=== PATIENT | male | born 1985 | race African-American/Black ===

== ENCOUNTER 2019-10-05 08:41 | Emergency (ER) | payer OTHER ==
--- OUTSIDE RECORDS SUMMARY | 2019-10-05 08:43 | XMS REPORT | Summary of Care ---
:1985 Demographics Address [address] [place] [address] [address] [place] [address] Mobile Phone Home Phone Phone Email Address [email or web address] Preferred Language South Korean Marital Status Single Mandaen Affiliation Unknown Race Black or Ethnic Group Not or Author Organization [facility] Address [address] [place] [phone] Care Team Providers Name Role Phone Pcp, Patient Does Not Have A Primary Care Provider Reason for Referral Radiology Services (STAT) Status Reason Specialty Diagnoses / Referred By Referred To Procedures Contact Contact New Request Diagnostic Diagnoses Testicular pain Pio Bhandari Radiology Procedures US SCROTUM AND CONTENTS MD Michael [address] [place] [phone] Radiology Services (STAT) Status Reason Specialty Diagnoses / Referred By Referred To Procedures Contact Contact New Request Diagnostic Diagnoses Testicular pain Pio Bhandari Radiology Procedures US SCROTUM AND CONTENTS MD Michael [address] [place] [phone] Reason for Visit Reason Comments Testicle Problem Auth/Cert Status Reason Specialty Diagnoses / Referred By Referred To Procedures Contact Contact Emergency Medicine [facility]-Emergency Dept [address] [place] [phone] Encounter Details Date Type Department Care Team Description 02/09/2019 Emergency [facility]Emer[facility] Department Pio Bhandari, Testicular pain [address] [place] [address] (Primary Dx) [place] [id number] [place], [place] [phone] [address] [phone] Allergies No Known Allergiesdocumented as of this encounter (statuses as of 02/09/2019) Medications Medication Sig Dispensed Refills Start Date End Date Status ondansetron 4 mg Take 1 tablet by 10 tablet 0 12/22/2018 Active tabletIndications: mouth every 8 Intractable vomiting (eight) hours as with nausea, needed for Nausea unspecified vomiting and Vomiting (N/V). type dicyclomine 20 mg Take 1 tablet by 20 tablet 0 12/22/2018 Active tabletIndications: mouth 4 (four) Diarrhea, unspecified times daily as type needed for Abdominal pain. documented as of this encounter (statuses as of 02/09/2019) Active Problems Problem Noted Date Polysubstance overdose 02/08/2017 documented as of this encounter (statuses as of 02/09/2019) Social History Tobacco Use Types Packs/Day Years Used Date Current Every Day Smoker 0.5 6 Smokeless Tobacco: Never Used Alcohol Use Drinks/Week oz/Week Comments Yes 10 Cans of beer 6.0 Alcohol Habits Answer Date Recorded How often do you have a drink containing 4 or more times a week 12/22/2018 alcohol? How many drinks containing alcohol do you have 1 or 2 12/22/2018 on a typical day when you are drinking? How often do you have six or more drinks on one Not asked occasion? Sex Assigned at Date Recorded Not on file Job Start Date Occupation Industry Not on file Not on file Not on file Travel History Travel Start Travel End No recent travel history available. documented as of this encounter Last Filed Vital Signs Vital Sign Reading Time Taken Comments Blood Pressure 132/79 02/09/2019 11:50 AM CDT Pulse 69 02/09/2019 11:50 AM CDT Temperature 36.7 C (98 F) 02/09/2019 11:50 AM CDT Respiratory Rate 18 02/09/2019 11:50 AM CDT Oxygen Saturation 100% 02/09/2019 11:50 AM CDT Inhaled Oxygen Concentration - - Weight 90.7 kg (200 lb) 02/09/2019 9:32 AM CDT Height - - Body Mass Index 27.12 02/08/2017 10:00 PM CDT documented in this encounter Discharge Instructions InstructionsHuPio patricio MD - 02/09/2019Diagnosis: Testicular pain, varicocele, epididymal cyst Rx: Ibuprofen 600 mg every 6 hours as needed for pain. Follow up with urology in clinic next week if not much better. Return to ER for increasing pain, increasing swelling, fever, pain with urination, or any problems or concerns. AttachmentsThe following attachments cannot be sent through Care Everywhere.Varicocele (South Korean)Testicular Pain, Unclear Cause (South Korean) documented in this encounter Plan of Treatment Name Type Priority Associated Diagnoses Date/Time GC & CHLAMYDIA AMPLIFIED LAB STAT Testicular pain 02/09/2019 9:58 AM CDT ASSAY Name Type Priority Associated Diagnoses Order Schedule GC & CHLAMYDIA AMPLIFIED LAB Routine Testicular pain ONCE for 1 Occurrences ASSAY starting 02/09/2019 until 02/09/2019 Health Maintenance Due Date Last Done Comments PNEUMOCOCCAL 0-64 YEARS COMBINED SERIES (1 of 1 - 1990 PPSV23) VARICELLA VACCINES (1 of 2 - 13+ 2-dose series) 1997 DTaP,Tdap,and Td Vaccines (1 - Tdap) 09/28/2003 INFLUENZA VACCINE 03/05/2019 documented as of this encounter Procedures Procedure Name Priority Date/Time Associated Comments Diagnosis US SCROTUM AND STAT 02/09/2019 11:20 AM Testicular pain Results for this CONTENTS CDT procedure are in the results section. URINALYSIS STAT 02/09/2019 9:58 AM Testicular pain Results for this CDT procedure are in the results section. documented in this encounter Results US SCROTUM AND CONTENTS (02/09/2019 11:20 AM CDT) Specimen Impressions Performed At [facility] 1.A 1.7 cm right simple epididymal head cyst. 2.No evidence of testicular torsion or epididymoorchitis. 3.Left varicocele. ITres MD., have reviewed this study and agree with the above report. Narrative Performed At EXAM HISTORY: right testicular pain and swelling. [facility] SCROTAL ULTRASOUND FINDINGS: RIGHT TESTICLE: Normal size, shape, and echotexture without a focal lesion. The right testicle measures 4.6 x 2 x 3.4 cm (16.3 mL). LEFT TESTICLE: Normal size, shape, and echotexture without a focal lesion. The left testicle measures 4.6 x 2.3 x 3.4 cm (18.5 mL). EPIDIDYMIDES: The left abdominal head measures 0.9 x 0.8 x 1 cm. The right epididymal head measures 1.4 x 2 x 0.7 cm. Within the right epididymal head lies a 1.5 x 1.2 x 1.7 cm round, anechoic structure that demonstrates posterior acoustic enhancement consistent with simple epididymal head cyst. BLOOD FLOW: Symmetric arterial waveforms. SCROTUM: No hydrocele. VARICOCELE: A Left varicocele is present. Procedure Note [facility], Radiant Results Inft User - 02/09/2019 11:49 AM CDT EXAM HISTORY: right testicular pain and swelling . SCROTAL ULTRASOUND FINDINGS: RIGHT TESTICLE: Normal size, shape, and echotexture without a focal lesion. The right testicle measures 4.6 x 2 x 3.4 cm (16.3 mL). LEFT TESTICLE: Normal size, shape, and echotexture without a focal lesion. The left testicle measures 4.6 x 2.3 x 3.4 cm (18.5 mL). EPIDIDYMIDES: The left abdominal head measures 0.9 x 0.8 x 1 cm. The right epididymal head measures 1.4 x 2 x 0.7 cm. Within the right epididymal head lies a 1.5 x 1.2 x 1.7 cm round, anechoic structure that demonstrates posterior acoustic enhancement consistent with simple epididymal head cyst. BLOOD FLOW: Symmetric arterial waveforms. SCROTUM: No hydrocele. VARICOCELE: A Left varicocele is present. IMPRESSION 1. A 1.7 cm right simple epididymal head cyst. 2. No evidence of testicular torsion or epididymoorchitis. 3. Left varicocele. IObey MD., have reviewed this study and agree with the above report. Performing Organization Address City/State/Zipcode Phone Number PACS/VR/DOSE URINALYSIS (02/09/2019 9:58 AM CDT) APPEARANCE Clear Clear [facility] COLOR Yellow Yellow [facility] PH 6.0 4.8 - 8.0 [facility] SP GRAVITY 1.021 1.003 - 1.030 [facility] GLU U QUAL 150 mg/dL (A) Normal [facility] BLOOD Negative Negative [facility] KETONES Negative Negative [facility] PROTEIN Negative Negative [facility] UROBILIN Normal Normal [facility] BILIRUBIN Negative Negative [facility] NITRITE Negative Negative [facility] LEUK MEGHAN Negative Negative [facility] RBC/HPF 2 0 - 3 HPF [facility] WBC/HPF 3 0 - 5 HPF [facility] BACTERIA Negative Negative [facility] MUCOUS Moderate (A) Negative LPF [facility] SQ EPITH 1 <=2 HPF [facility] Specimen Urine - URINE, CLEAN CATCH Performing Organization Address City/State/Zipcode Phone Number [facility] CLIA: [id number], [address] [place] [address] [phone] [facility] documented in this encounter Visit Diagnoses Diagnosis Testicular pain - Primary Unspecified disorder of male genital organs documented in this encounter Administered Medications Medication Order MAR Action Action Date Dose Rate Site ibuprofen (IBU) tablet 600 mg Given 02/09/2019 11:48 AM CDT 600 mg 600 mg, Oral, ONCE, 1 dose, Shaina 02/09/19 at 1130, MELISSA documented in this encounter
--- OUTSIDE RECORDS SUMMARY | 2019-10-05 08:44 | XMS REPORT ---
:1985 [facility] Address [address] [place] [address] [address] [place] [address] Care Team Providers Name Role Phone Unavailable Unavailable Unavailable Problems This patient has no known problems. Allergies, Adverse Reactions, Alerts This patient has no known allergies or adverse reactions. Medications This patient has no known medications.
[2019-10-05] MEDS ORDERED: FAMOTIDINE 20 MG/2 ML VIAL IV ONE (09:15)
[2019-10-05] MEDS ORDERED: ONDANSETRON 4 MG/2 ML VIAL ONE (09:15)
[2019-10-05 09:22] LABS: Absolute Lymphocytes (CBC) 2.5 K/uL (0.7-4.9); Basophils % 0.9 % (0-1.3); Hematocrit 47.1 % (39.6-49.0); Lymphocytes % 44.7 % (15.3-44.8); MPV 8.3 fL (7.6-11.3); RBC Red Blood Cell Count 5.64 M/uL (4.33-5.43)
[2019-10-05 09:35] LABS: ALT/SGPT 36 U/L (12-78); AST/SGOT 24 U/L (15-37); Albumin 3.9 g/dL (3.4-5.0); Alkaline Phosphatase 77 U/L (45-117); BUN Blood Urea Nitrogen 7 mg/dL (7-18); Bicarbonate 29 mmol/L (21-32); Bilirubin Direct 0.1 mg/dL (0-0.2); Bilirubin Total 0.8 mg/dL (0.2-1.0); Glucose Level 88 mg/dL (74-106); Lipase 88 U/L (73-393); Potassium 3.9 mmol/L (3.5-5.1); Protein, Total 7.9 g/dL (6.4-8.2); Sodium Level 141 mmol/L (136-145)
--- NOTE | 2019-10-05 11:10 | RAD REPORT ---
EXAM DESCRIPTION: US - Abdomen Exam Limited - 10/05/2019 9:52 am CLINICAL HISTORY: ABD PAIN COMPARISON: No comparisons FINDINGS: No gallstones are identified. Internal echogenicity is believed to be artifact rather than sludge. There is no wall thickening or pericholecystic fluid. No common duct stone or biliary tree dilatation identified. IMPRESSION: Normal gallbladder and biliary tree ultrasound.
--- NOTE | 2019-10-05 11:26 | EDPHYS ---
Physician Documentation [facility] Name: Phillip Gusman Age: 34 yrs Sex: Male : 1985 Arrival Date: 10/05/2019 Time: 08:47 Bed 5 Private MD: ED Physician Kiera Bowling HPI: 10/04 09:00 This 34 yrs old Black Male presents to ER via Ambulatory with complaints of jr8 Nausea/Vomiting. 09:00 The patient presents with abdominal pain in the right upper quadrant. Onset: The jr8 symptoms/episode began/occurred yesterday. The patient presents to the emergency department with nausea, that is mild, vomiting, that is intermittent. Onset: The symptoms/episode began/occurred yesterday. Historical: - Allergies: 08:56 No Known Allergies; ss - Home Meds: 08:56 None [Active]; ss - PMHx: 08:56 None; ss - PSHx: 08:56 None; ss - Immunization history:: Adult Immunizations up to date. - Social history:: Smoking status: Patient denies any tobacco usage or history of. ROS: 09:05 Constitutional: Negative for body aches, chills, fever, poor PO intake. jr8 09:05 Eyes: Negative for injury, pain, redness, and discharge. jr8 Exam: 09:10 Constitutional: The patient appears in no acute distress, alert, awake, jr8 non-diaphoretic, non-toxic, well developed, well nourished. 09:10 Head/Face: Normocephalic, atraumatic. Eyes: Pupils equal round and reactive to light, jr8 extra-ocular motions intact. Lids and lashes normal. Conjunctiva and sclera are non-icteric and not injected. Cornea within normal limits. Periorbital areas with no swelling, redness, or edema. ENT: Nares patent. No nasal discharge, no septal abnormalities noted. Tympanic membranes are normal and external auditory canals are clear. Oropharynx with no redness, swelling, or masses, exudates, or evidence of obstruction, uvula midline. Mucous membranes moist. Chest/axilla: Normal chest wall appearance and motion. Nontender with no deformity. No lesions are appreciated. Cardiovascular: Regular rate and rhythm with a normal S1 and S2. No gallops, murmurs, or rubs. Normal PMI, no JVD. No pulse deficits. Respiratory: Lungs have equal breath sounds bilaterally, clear to auscultation and percussion. No rales, rhonchi or wheezes noted. No increased work of breathing, no retractions or nasal flaring. 09:10 Abdomen/GI: Inspection: abdomen appears normal, Bowel sounds: active, all quadrants, Palpation: soft, in all quadrants, mild abdominal tenderness, in the right upper quadrant, rebound tenderness, is not appreciated, voluntary guarding, is not appreciated, involuntary guarding, is not appreciated. 09:10 Back: pain, is absent, ROM is normal. Vital Signs: 08:54 BP 124 / 89; Pulse 85; Resp 16; Temp 97.5; Pulse Ox 100% ; Weight 108.86 kg; Height 5 ss ft. 11 in. (180.34 cm); Pain 0/10; 09:47 BP 127 / 85; Pulse 63; Resp 16; Temp 97.8(TE); Pulse Ox 99% on R/A; mh5 10:29 BP 117 / 89; Pulse 68; Resp 15; Pulse Ox 99% on R/A; hb 11:35 BP 127 / 90; Pulse 80; Resp 16 S; Pulse Ox 100% on R/A; aa5 08:54 Body Mass Index 33.47 (108.86 kg, 180.34 cm) ss MDM: 08:48 Patient medically screened. cp 11:24 Data reviewed: vital signs, nurses notes, lab test result(s), radiologic studies, jr8 ultrasound. Data interpreted: Pulse oximetry: on room air is 99 %. Interpretation: normal. Counseling: I had a detailed discussion with the patient and/or guardian regarding: the historical points, exam findings, and any diagnostic results supporting the discharge/admit diagnosis, lab results, radiology results, the need for outpatient follow up, a family practitioner, a silk screener, to return to the emergency department if symptoms worsen or persist or if there are any questions or concerns that arise at home. Response to treatment: the patient's symptoms have markedly improved after treatment. 10/04 08:55 Order name: Basic Metabolic Panel; Complete Time: 09:48 cp 10/04 08:55 Order name: CBC with Diff; Complete Time: 09:28 cp 10/04 09:28 Interpretation: Normal except: RBC 5.64. cp 10/04 08:55 Order name: Creatinine for Radiology; Complete Time: 09:48 cp 10/04 08:55 Order name: Hepatic Function; Complete Time: 09:48 cp 10/04 09:48 Interpretation: Normal except: GLOB 4.0; A/G 1.0. cp 10/04 08:55 Order name: Lipase; Complete Time: 09:48 cp 10/04 08:55 Order name: US Abdomen Limited: RUQ; Complete Time: 11:22 cp 10/04 08:55 Order name: IV Saline Lock; Complete Time: 09:24 cp 10/04 08:55 Order name: Labs collected and sent; Complete Time: 09:15 cp 10/04 08:55 Order name: NPO; Complete Time: 09:24 cp Administered Medications: 09:23 Drug: Pepcid 20 mg Route: IVP; Site: left antecubital; 09:24 Drug: Zofran (Ondansetron) 4 mg Route: IVP; Site: left antecubital; Disposition: 16:23 Co-signature as Attending Physician, Kiera Bowling MD. ma2 Disposition: 10/05/19 11:25 Discharged to Home. Impression: Nausea and vomiting. - Condition is Stable. - Discharge Instructions: Nausea and Vomiting, Adult. - Prescriptions for Zofran 4 mg Oral Tablet - take 1 tablet by ORAL route every 12 hours As needed; 20 tablet. - Work release form, Medication Reconciliation Form, Thank You Letter, Antibiotic Education, Prescription Opioid Use form. - Follow up: Private Physician; When: 5 - 6 days; Reason: Recheck today's complaints, Continuance of care, Re-evaluation by your physician. - Problem is new. - Symptoms have improved. Signatures: Dispatcher [employer] EDLacey Olson RN RN aa5 Marixa Chambers RN RN ss Roszak, Josh, PA PA jr8 Daniele Khalil PA PA cp Baxter, Heather, RN RN Kiera Bowling MD MD ma2 Corrections: (The following items were deleted from the chart) 11:41 11:25 10/05/2019 11:25 Discharged to Home. Impression: Nausea and vomiting. Condition aa5 is Stable. Forms are Medication Reconciliation Form, Thank You Letter, Antibiotic Education, Prescription Opioid Use. Follow up: Private Physician; When: 5 - 6 days; Reason: Recheck today's complaints, Continuance of care, Re-evaluation by your physician. Problem is new. Symptoms have improved. jr8
--- NOTE | 2019-10-05 11:26 | ER ---
Nurse's Notes [facility] Name: Phillip Gusman Age: 34 yrs Sex: Male : 1985 Arrival Date: 10/05/2019 Time: 08:47 Bed 5 Private MD: Diagnosis: Nausea and vomiting Presentation: 10/04 08:55 Chief complaint: Patient states: N/V that began yesterday. Coronavirus screen: Patient ss denies fever greater than 100.4F, cough, shortness of breath, or difficulty breathing. Proceed with normal triage process. Ebola Screen: Patient denies exposure to infectious person. Patient denies travel to an Ebola-affected area in the 21 days before illness onset. Initial Sepsis Screen: Does the patient meet any 2 criteria? No. Patient's initial sepsis screen is negative. Does the patient have a suspected source of infection? No. Patient's initial sepsis screen is negative. Risk Assessment: Do you want to hurt yourself or someone else? Patient reports no desire to harm self or others. 08:55 Method Of Arrival: Ambulatory ss 08:55 Acuity: EDILMA 3 ss Historical: - Allergies: 08:56 No Known Allergies; ss - Home Meds: 08:56 None [Active]; ss - PMHx: 08:56 None; ss - PSHx: 08:56 None; ss - Immunization history:: Adult Immunizations up to date. - Social history:: Smoking status: Patient denies any tobacco usage or history of. Screenin:28 Abuse screen: Denies threats or abuse. Denies injuries from another. Nutritional hb screening: No deficits noted. Tuberculosis screening: No symptoms or risk factors identified. Fall Risk None identified. Assessment: 09:15 General: Appears in no apparent distress. Behavior is calm, cooperative. Pain: Denies hb pain. Neuro: Level of Consciousness is awake, alert, obeys commands, Oriented to person, place, time, situation. Cardiovascular: Capillary refill < 3 seconds Patient's skin is warm and dry. Respiratory: Airway is patent Respiratory effort is even, unlabored, Respiratory pattern is regular, symmetrical. GI: Abdomen is non-distended, Reports nausea, vomiting. : No signs and/or symptoms were reported regarding the genitourinary system. EENT: No signs and/or symptoms were reported regarding the EENT system. Derm: Skin is pink, warm \T\ dry. Musculoskeletal: No signs and/or symptoms reported regarding the musculoskeletal system. 10:02 Reassessment: Patient appears in no apparent distress at this time. Patient and/or hb family updated on plan of care and expected duration. Pain level reassessed. Patient is alert, oriented x 3, equal unlabored respirations, skin warm/dry/pink. 11:40 Neuro: Level of Consciousness is awake, alert, obeys commands, Oriented to person, aa5 place, time, situation. Respiratory: Airway is patent Respiratory effort is even, unlabored, Respiratory pattern is regular, symmetrical. Derm: Skin is pink, warm \T\ dry. Vital Signs: 08:54 BP 124 / 89; Pulse 85; Resp 16; Temp 97.5; Pulse Ox 100% ; Weight 108.86 kg; Height 5 ss ft. 11 in. (180.34 cm); Pain 0/10; 09:47 BP 127 / 85; Pulse 63; Resp 16; Temp 97.8(TE); Pulse Ox 99% on R/A; mh5 10:29 BP 117 / 89; Pulse 68; Resp 15; Pulse Ox 99% on R/A; hb 11:35 BP 127 / 90; Pulse 80; Resp 16 S; Pulse Ox 100% on R/A; aa5 08:54 Body Mass Index 33.47 (108.86 kg, 180.34 cm) ED Course: 08:47 Patient arrived in ED. mr 08:47 Daniele Khalil PA is PHCP. cp 08:48 Kiera Bowling MD is Attending Physician. cp 08:54 Arm band placed on right wrist. ss 08:55 Triage completed. ss 09:15 Basic Metabolic Panel Sent. 5 09:15 CBC with Diff Sent. 5 09:15 Creatinine for Radiology Sent. 5 09:15 Hepatic Function Sent. 5 09:15 Lipase Sent. 5 09:16 Initial lab(s) drawn, by me, sent to lab. 5 09:17 Patient has correct armband on for positive identification. Bed in low position. Call [facility] light in reach. Side rails up X 1. Pulse ox on. NIBP on. 09:22 Inserted saline lock: 20 gauge in left antecubital area, using aseptic technique. Blood hb collected. 09:23 Bravo, Homa, RN is Primary Nurse. hb 09:47 US Abdomen Limited: RUQ In Process Unspecified. EDMS 11:10 PHCP role handed off by Daniele Khalil PA jr8 11:10 Hany Mireles PA is PHCP. jr8 11:40 IV discontinued, intact, bleeding controlled, No redness/swelling at site. Pressure aa5 dressing applied. 11:40 No provider procedures requiring assistance completed. aa5 Administered Medications: 09:23 Drug: Pepcid 20 mg Route: IVP; Site: left antecubital; hb 09:24 Drug: Zofran (Ondansetron) 4 mg Route: IVP; Site: left antecubital; hb Outcome: 11:25 Discharge ordered by MD. jr8 11:40 Discharged to home ambulatory. aa5 11:40 Condition: stable 11:40 Discharge instructions given to patient, Instructed on discharge instructions, follow up and referral plans. medication usage, Demonstrated understanding of instructions, follow-up care, medications, Prescriptions given X 1. 11:41 Patient left the ED. aa5 Signatures: Dispatcher [employer] [facility] Radha LomaxLacey, RN RN aa5 Marixa Chambers RN RN Hany Mireles PA PA jr8 Page, Corey, PA PA cp Baxter, Heather, Bhumi Rodriguez RN [facility]
[2019-10-05 11:50] VITALS: TEMP 97.8; O2SAT 99
[2019-10-05 11:51] VITALS: BP 117/89
== END 2019-10-05 11:41 | disposition home or self-care (01) ==
LOC: ER 08:41
DX: R11.2 Nausea with vomiting, unspecified (principal); R10.11 Right upper quadrant pain
CPT/HCPCS: 85025; 80048; 36415; 80076; 83690; 76705; 96375; 96374; 99284; J2405

== ENCOUNTER 2020-08-01 13:30 | Emergency (ER) | payer OTHER ==
--- OUTSIDE RECORDS SUMMARY | 2020-08-01 13:33 | XMS REPORT | Continuity of Care Document ---
:1985 Author Organization [facility] t Address [address] [place] [address] Care Team Providers Name Role Phone Thony WEIR W Attending Clinician Problems This patient has no known problems. Allergies, Adverse Reactions, Alerts This patient has no known allergies or adverse reactions. Medications This patient has no known medications. Procedures This patient has no known procedures. Encounters Start End Encounter Admission Attending Care Care Encounter Source Date/Time Date/Time Type Type Clinicians Facility Department ID 2019-02-09 2019-02-09 Emergency Thony, TRAUMA [id number] 09:32:56 12:26:00 Pio SIMS [id number] Results This patient has no known results.
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
[2020-08-01 13:59] LABS: Absolute Lymphocytes (CBC) 3.2 K/uL (0.7-4.9); Basophils % 0.8 % (0-1.3); Hematocrit 44.2 % (39.6-49.0); Lymphocytes % 48.1 % (15.3-44.8)
--- NOTE | 2020-08-01 14:10 | RAD REPORT ---
EXAM DESCRIPTION: CT - Stone Protocol - 08/01/2020 1:55 pm CLINICAL HISTORY: Flank pain. right flank pain COMPARISON: No comparisons TECHNIQUE: Axial images were obtained without oral or IV contrast. Lack of contrast limits solid org an and vascular assessment. The [id number] spans the entirety of the system partially obscuring uppermost abdomen and lung bases. Coronal reformatted images were obtained and reviewed. All CT scans are performed using dose optimization technique as appropriate and may include automated exposure control or mA/KV adjustment according to patient size. FINDINGS: The lower lung holloway are clear. Imaged portions of the liver and spleen show no suspicious findings on non-contrast imaging. The panc reas and adrenal glands are normal. No pathologic lymphadenopathy in the abdomen or pelvis. 2 mm stone is present at the right UVJ resulting in mild right hydronephrosis. No bowel obstruction, free air, free fluid or abscess. Normal appendix noted.Small fat containing keena ateral inguinal hernias and umbilical hernia. No significant bony abnormality. IMPRESSION: 2 mm stone at the right UVJ resulting in mild right hydronephrosis.
[2020-08-01] MEDS ORDERED: KETOROLAC 30 MG/ML INJ ONE (14:11)
[2020-08-01] MEDS ORDERED: NA CHLORIDE 0.9% 1,000 ML ONE (14:11)
[2020-08-01 14:20] LABS: Albumin 3.4 g/dL (3.4-5.0); Bilirubin Direct 0.1 mg/dL (0-0.2); Bilirubin Total 0.5 mg/dL (0.2-1.0); Potassium 3.6 mmol/L (3.5-5.1); Protein, Total 7.3 g/dL (6.4-8.2)
[2020-08-01] MEDS ORDERED: TAMSULOSIN 0.4 MG SR CAP ONE (14:26)
--- NOTE | 2020-08-01 15:29 | ER ---
Nurse's Notes [facility] Name: Phillip Gusman Age: 34 yrs Sex: Male : 1985 Arrival Date: 08/01/2020 Time: 13:33 Bed 13 Private MD: Diagnosis: Calculus of ureter Presentation: 08/01 13:33 Chief complaint: Patient states: R flank pain that began today. Pt reports a hx of ss kidney stones and reports this feels similar. Coronavirus screen: Client denies travel out of the [place] in the last 14 days. Ebola Screen: Patient denies exposure to infectious person. Patient denies travel to an Ebola-affected area in the 21 days before illness onset. Initial Sepsis Screen: Does the patient meet any 2 criteria? No. Patient's initial sepsis screen is negative. Does the patient have a suspected source of infection? No. Patient's initial sepsis screen is negative. Risk Assessment: Do you want to hurt yourself or someone else? Patient reports no desire to harm self or others. Onset of symptoms was August 01, 2020. Care prior to arrival: Medication(s) given: Normal saline infusion, 500 mL, 75 mcg Fentanyl IV initiated. 18 GA, in the right antecubital area, Glucose check: 150. 13:33 Method Of Arrival: EMS: [facility] ss 13:33 Acuity: EDILMA 3 ss Historical: - Allergies: 13:36 No Known Allergies; ss - Home Meds: 13:36 None [Active]; ss - PMHx: 13:36 Kidney stones; ss - PSHx: 13:36 None; ss - Immunization history:: Adult Immunizations unknown. - Social history:: Smoking status: . Screenin:36 Abuse screen: Denies threats or abuse. Denies injuries from another. Nutritional ss screening: No deficits noted. Tuberculosis screening: Never had TB. Fall Risk None identified. Assessment: 13:36 General: Appears uncomfortable, Behavior is calm, cooperative, quiet. Pain: Complains ss of pain in R flank Pain currently is 6.5 out of 10 on a pain scale. at worst was 10 out of 10 on a pain scale. Quality of pain is described as sharp, Pain began today Is continuous, Alleviated by medications, Noted to be grimacing. Neuro: Level of Consciousness is awake, alert, obeys commands, Oriented to person, place, time, situation. Cardiovascular: Capillary refill < 3 seconds is brisk in bilateral fingers. Respiratory: Airway is patent Respiratory effort is even, unlabored, Respiratory pattern is regular, symmetrical. GI: Patient currently denies diarrhea, nausea, vomiting. : No signs and/or symptoms were reported regarding the genitourinary system. Denies inability to void. EENT: Oral mucosa is moist. Derm: Skin is intact, is healthy with good turgor, Skin is dry, Skin is pink, warm \T\ dry. normal. Musculoskeletal: Circulation, motion, and sensation intact. Range of motion: intact in all extremities, Swelling absent. Vital Signs: 13:33 BP 115 / 81; Pulse 87; Resp 16; Temp 97.4(TE); Pulse Ox 95% on R/A; Weight 102.06 kg; ss Height 6 ft. 0 in. (182.88 cm); Pain 6/10; 13:33 Body Mass Index 30.52 (102.06 kg, 182.88 cm) ED Course: 13:33 Patient arrived in ED. ss 13:34 Maurizio Barfield PA is PHCP. jmm 13:34 Tobias Yeager MD is Attending Physician. jmm 13:35 Triage completed. ss 13:36 Ondina Meadows RN is Primary Nurse. iw 13:36 Arm band placed on right wrist. ss 13:36 Patient has correct armband on for positive identification. Bed in low position. Call ss light in reach. Pulse ox on. NIBP on. 13:36 Maintain EMS IV. Dressing intact. Good blood return noted. Site clean \T\ dry. Gauge \T\ ss site: 18 gauge in L AC. 13:55 CT Stone Protocol In Process Unspecified. EDMS 15:28 Shahab Cruz MD is Referral Physician. jmm 15:34 No provider procedures requiring assistance completed. IV discontinued, intact, ss bleeding controlled, No redness/swelling at site. Pressure dressing applied. Administered Medications: 13:44 Drug: NS 0.9% 1000 ml Route: IV; Rate: 1 bolus; Site: right antecubital; ss 15:34 Follow up: IV Status: Completed infusion; IV Intake: 1000ml ss 13:55 Drug: Ketorolac 30 mg Route: IVP; Site: left antecubital; ss 15:34 Follow up: Response: No adverse reaction; Pain is decreased ss 14:25 Drug: Flomax 0.4 mg Route: PO; iw 15:34 Follow up: Response: No adverse reaction ss Intake: 15:34 IV: 1000ml; Total: 1000ml. ss Outcome: 15:28 Discharge ordered by . mainor 15:34 Discharged to home ambulatory. ss 15:34 Condition: improved 15:34 Discharge instructions given to patient, Instructed on discharge instructions, follow up and referral plans. medication usage, Demonstrated understanding of instructions, follow-up care, medications. 15:36 Patient left the ED. ss Signatures: Dispatcher [employer] EDMS Maurizio Barfield PA PA jmm Williams, Irene, RN RN iw Marixa Chambers RN RN ss
--- NOTE | 2020-08-01 15:29 | EDPHYS ---
Physician Documentation [facility] Name: Phillip Gusman Age: 34 yrs Sex: Male : 1985 Arrival Date: 08/01/2020 Time: 13:33 Bed 13 Private MD: ED Physician Tobias Yeager HPI: 08/01 13:44 This 34 yrs old Black Male presents to ER via EMS with complaints of Flank Pain. jmm 13:44 The patient complains of pain in the right flank. Onset: The symptoms/episode jmm began/occurred gradually, this morning. Modifying factors: The symptoms are alleviated by nothing. the symptoms are aggravated by nothing. Associated signs and symptoms: Pertinent negatives: fever, vomiting. The patient has experienced similar episodes in the past. Historical: - Allergies: 13:36 No Known Allergies; ss - Home Meds: 13:36 None [Active]; ss - PMHx: 13:36 Kidney stones; ss - PSHx: 13:36 None; ss - Immunization history:: Adult Immunizations unknown. - Social history:: Smoking status: . ROS: 13:44 Constitutional: Negative for fever, chills, and weight loss, Cardiovascular: Negative jmm for chest pain, palpitations, and edema, Respiratory: Negative for shortness of breath, cough, wheezing, and pleuritic chest pain. 13:44 Abdomen/GI: Positive for abdominal pain. 13:44 Back: Positive for flank pain. 13:44 All other systems are negative. Exam: 13:44 Constitutional: This is a well developed, well nourished patient who is awake, alert, jmm and in no acute distress. Head/Face: atraumatic. Eyes: EOMI, no conjunctival erythema appreciated ENT: Moist Mucus Membranes Neck: Trachea midline, Supple Chest/axilla: Normal chest wall appearance and motion. Cardiovascular: Regular rate and rhythm. No edema appreciated Respiratory: Normal respirations, no respiratory distress appreciated 13:44 Skin: General appearance color normal MS/ Extremity: Moves all extremities, no obvious deformities appreciated, no edema noted to the lower extremities Neuro: Awake and alert, normal gait Psych: Behavior is normal, Mood is normal, Patient is cooperative and pleasant 13:44 Abdomen/GI: Inspection: abdomen appears normal, Bowel sounds: normal, Palpation: soft, moderate abdominal tenderness, in the right lower quadrant. 13:44 Back: CVA tenderness, that is moderate, is noted on the right. Vital Signs: 13:33 BP 115 / 81; Pulse 87; Resp 16; Temp 97.4(TE); Pulse Ox 95% on R/A; Weight 102.06 kg; ss Height 6 ft. 0 in. (182.88 cm); Pain 6/10; 13:33 Body Mass Index 30.52 (102.06 kg, 182.88 cm) ss MDM: 13:34 Patient medically screened. [facility] 15:26 Data reviewed: vital signs, nurses notes. Counseling: I had a detailed discussion with mainor the patient and/or guardian regarding: the historical points, exam findings, and any diagnostic results supporting the discharge/admit diagnosis, lab results, radiology results, the need for outpatient follow up, to return to the emergency department if symptoms worsen or persist or if there are any questions or concerns that arise at home. ED course: Imaging studies positive for UVJ stone. Patient's pain has decreased in the ED. NO vomiting. Patient is advised to return to the ED if increased pain or vomiting develops. Patient understood and agrees with the plan of care. . 08/01 13:35 Order name: Basic Metabolic Panel; Complete Time: 14:24 [facility] 08/01 13:35 Order name: CBC with Diff; Complete Time: 14:03 [facility] 08/01 13:35 Order name: Hepatic Function; Complete Time: 14:24 [facility] 08/01 13:35 Order name: Lipase; Complete Time: 14:24 [facility] 08/01 14:58 Order name: Urine Dipstick--Ancillary (enter results) [facility] 08/01 14:59 Order name: Urine Dipstick-Ancillary [facility] 08/01 13:35 Order name: IV Saline Lock; Complete Time: 13:44 [facility] 08/01 13:35 Order name: Labs collected and sent; Complete Time: 13:44 [facility] 08/01 13:35 Order name: CT Stone Protocol; Complete Time: 14:18 [facility] 08/01 14:25 Order name: Urine Dipstick-Ancillary (obtain specimen); Complete Time: 14:51 iw Administered Medications: 13:44 Drug: NS 0.9% 1000 ml Route: IV; Rate: 1 bolus; Site: right antecubital; 15:34 Follow up: IV Status: Completed infusion; IV Intake: 1000ml ss 13:55 Drug: Ketorolac 30 mg Route: IVP; Site: left antecubital; ss 15:34 Follow up: Response: No adverse reaction; Pain is decreased ss 14:25 Drug: Flomax 0.4 mg Route: PO; iw 15:34 Follow up: Response: No adverse reaction ss Disposition: 16:47 Co-signature as Attending Physician, Tobias Yeager MD I agree with the assessment and kdr plan of care. Disposition: 08/01/20 15:28 Discharged to Home. Impression: Calculus of ureter. - Condition is Stable. - Discharge Instructions: Kidney Stones, Dietary Guidelines to Help Prevent Kidney Stones. - Prescriptions for Ibuprofen 800 mg Oral Tablet - take 1 tablet by ORAL route every 8 hours As needed take with food; 30 tablet. Tylenol- Codeine #3 300-30 mg Oral Tablet - take 2 tablet by ORAL route every 6 hours As needed; 6 tablet. Zofran 4 mg Oral Tablet - take 1 tablet by ORAL route every 12 hours As needed; 6 tablet. Flomax 0.4 mg Oral Capsule, Sust. Release 24 hr - take 1 capsule by ORAL route once daily 1/2 hour following the same meal each day; 30 capsule. - Medication Reconciliation Form, Thank You Letter, Antibiotic Education, Prescription Opioid Use form. - Work release form (08/01/20 15:38). em1 - Follow up: Shahab Cruz MD; When: 2 - 3 days; Reason: Recheck today's complaints, Continuance of care, Re-evaluation by your physician. Signatures: Dispatcher [employer] EDMI Tobias Yeager MD MD kdr Mickail, Joel, PA PA Ondina Ignacio, RN RN Marixa Chambers RN RN Kwesi Garvin em1 Corrections: (The following items were deleted from the chart) 15:36 15:28 08/01/2020 15:28 Discharged to Home. Impression: Calculus of ureter. Condition is ss Stable. Forms are Medication Reconciliation Form, Thank You Letter, Antibiotic Education, Prescription Opioid Use. Follow up: Shahab Cruz; When: 2 - 3 days; Reason: Recheck today's complaints, Continuance of care, Re-evaluation by your physician. mainor
[2020-08-01 15:43] VITALS: BP 115/81; TEMP 97.4; O2SAT 95
[2020-08-01 15:46] LABS: Urine Blood 1+ (NEG); Urine Glucose NEGATIVE (NEG); Urine Protein NEGATIVE (NEG); Urine Specific Gravity >1.030 (1.005-1.030)
== END 2020-08-01 15:36 | disposition home or self-care (01) ==
LOC: ER 13:30
DX: N13.2 Hydronephrosis with renal and ureteral calculous obstruction (principal)
CPT/HCPCS: 96361; 85025; 80048; 36415; 80076; 81003; 83690; 76377; 74176; 96374; 99284; J7030